=== PATIENT | female | born 1965 | race Caucasian/White ===

== ENCOUNTER 2019-09-20 11:03 | Emergency (ER) | payer OTHER ==
[~2019-09-20] VITALS: Ht 170.2 cm; Wt 81.8 kg
[2019-09-20 11:16] VITALS: Ht 170.2 cm; Wt 81.8 kg
[2019-09-20] MEDS ORDERED: AUGMENTIN 875-11 TAB PO (13:05)
[2019-09-20 13:12] VITALS: BP 133/85
== END 2019-09-20 13:12 | disposition home or self-care (01) ==
LOC: D.ER 11:03
DX: S51.851A Open bite of right forearm, initial encounter (principal); S51.811A Laceration without foreign body of right forearm, initial encounter; X58.XXXA Exposure to other specified factors, initial encounter